=== PATIENT | female | born 1935 | race Caucasian/White ===

== ENCOUNTER → 2016-09-21 | Outpatient (CLI) | payer BC ==
[2016-09-21 13:14] LABS: BASO % 0.8 %; BASO ABS # 0.06 K/uL (0-0.2); COMPLETE YES; EOS % 10.3 %; HEMATOCRIT 36.6 % (37-47); IG% 0.1 %; LYMPH % 26.1 %; LYMPH ABS # 1.92 K/uL (1.2-3.4); MEAN CELL VOLUME 92.9 fL (80-100); MEAN CORPUSCULAR HEMOGLOBIN 30.7 pg (25-34); MEAN CORPUSCULAR HGB CONC 33.1 g/dl (32-36); MEAN PLATELET VOLUME 10.6 fL (7.4-10.4); MONO % 11.9 %; NEUT % 50.8 %; PLATELET COUNT 240 K/uL (130-400); RED BLOOD COUNT 3.94 M/uL (4.2-5.4); WHITE BLOOD COUNT 7.37 K/uL (4.8-10.8)
[2016-09-21 13:35] LABS: ALT/SGPT 20 U/L (12-78); BLOOD UREA NITROGEN 34 mg/dl (7-18); BUN/CREATININE RATIO 30.6 (10-20); CALCIUM 8.9 mg/dl (8.5-10.1); CARBON DIOXIDE 26 mmol/L (21-32); CHLORIDE 106 mmol/L (98-107); CHOLESTEROL 166 mg/dl (0-200); GLUCOSE 93 mg/dl (70-99); POTASSIUM 4.5 mmol/L (3.5-5.1); SODIUM 142 mmol/L (136-145); TRIGLYCERIDES 136 mg/dl (0-150); URIC ACID 6.4 mg/dl (2.6-7.2); VERY LOW DENSITY LIPOPROT CALC 27 mg/dl
[2016-09-21 13:46] LABS: ALB/GLOB RATIO 0.9 (0.9-2); ALKALINE PHOSPHATASE 52 U/L (45-117); AST/SGOT 17 U/L (15-37); CHOLESTEROL/HDL RATIO 3.8; HDL CHOLESTEROL 44 mg/dl; LDL CHOLESTEROL CALCULATED 95 mg/dl
== END | disposition home or self-care (01) ==
LOC: C.LABMFLN 08:21
PROVIDERS: ATTEND Family Medicine
DX: I10 Essential (primary) hypertension (principal); E78.5 Hyperlipidemia, unspecified; M10.9 Gout, unspecified

== ENCOUNTER → 2017-02-16 | Outpatient (CLI) | payer BC ==
--- NOTE | 2017-02-17 07:55 | MAMMOGRAPHY REPORT ---
BILATERAL DIGITAL SCREENING MAMMOGRAM TOMOSYNTHESIS WITH CAD: 02/16/2017 CLINICAL HISTORY: Routine screening. Patient has no complaints. TECHNIQUE: Breast tomosynthesis in addition to standard 2D mammography was performed. Current study was also evaluated with a Computer Aided Detection (CAD) system. COMPARISON: Comparison is made to exams dated: 02/10/2016 mammogram, 02/05/2015 mammogram - [facility], 02/02/2014 mammogram, 01/10/2013 mammogram, and 01/08/2012 mammogram - [facility]. BREAST COMPOSITION: The tissue of both breasts is almost entirely fatty. FINDINGS: There is a stable grouping of punctate microcalcifications in the lateral right breast. Mo derate vascular calcifications. No suspicious mass, architectural distortion or cluster of suspiciou s microcalcifications is seen. IMPRESSION: ACR BI-RADS CATEGORY 1: NEGATIVE There is no mammographic evidence of malignancy. A 1 year screening mammogram is recommended. The pa tient will receive written notification of the results. Approximately 10% of breast cancers are not detected with mammography. A negative mammographic report should not delay biopsy if a clinically suggestive mass is present. Yashira Leach M.D. ay/:02/16/2017 16:45:27 New Client Banking Services Clerk: Deidra GONCALVES(Quang)(Marleny), [facility] letter sent: Normal 1/2 BI-RADS Code: ACR BI-RADS Category 1: Negative
== END | disposition home or self-care (01) ==
LOC: C.MAMM 12:51
PROVIDERS: ATTEND Family Medicine
DX: Z12.31 Encounter for screening mammogram for malignant neoplasm of breast (principal)

== ENCOUNTER → 2017-10-22 | Outpatient (CLI) | payer BC ==
[2017-10-22 13:51] LABS: ALBUMIN 3.3 gm/dl (3.4-5.0); ALT/SGPT 20 U/L (12-78); AST/SGOT 20 U/L (15-37); BLOOD UREA NITROGEN 21 mg/dl (7-18); CALCIUM 8.6 mg/dl (8.5-10.1); CARBON DIOXIDE 28 mmol/L (21-32); CHOLESTEROL 174 mg/dl (0-200); CREATININE 1.02 mg/dl (0.60-1.20); GLUCOSE 101 mg/dl (70-99); POTASSIUM 4.2 mmol/L (3.5-5.1); SODIUM 140 mmol/L (136-145)
[2017-10-22 13:53] LABS: BASO % 0.4 %; BASO ABS # 0.03 K/uL (0-0.2); EOS % 10.1 %; EOS ABS # 0.82 K/uL (0-0.5); HEMATOCRIT 38.8 % (37-47); HEMOGLOBIN 12.6 g/dL (12.0-16.0); IG# 0.02 K/uL (0.00-0.02); LYMPH % 22.8 %; LYMPH ABS # 1.84 K/uL (1.2-3.4); MEAN CELL VOLUME 95.1 fL (80-100); MEAN CORPUSCULAR HEMOGLOBIN 30.9 pg (25-34); MEAN CORPUSCULAR HGB CONC 32.5 g/dl (32-36); MEAN PLATELET VOLUME 11.5 fL (7.4-10.4); MONO % 11.8 %; MONO ABS # 0.95 K/uL (0.11-0.59); NEUT % 54.7 %; NEUT ABS # 4.42 K/uL (1.4-6.5); PLATELET COUNT 242 K/uL (130-400); RED CELL DISTRIBUTION WIDTH CV 13.6 % (11.5-14.5); RED CELL DISTRIBUTION WIDTH SD 46.8 fL (36.4-46.3); WHITE BLOOD COUNT 8.08 K/uL (4.8-10.8)
[2017-10-22 14:01] LABS: ALKALINE PHOSPHATASE 60 U/L (45-117); LDL CHOLESTEROL CALCULATED 95 mg/dl; TOTAL PROTEIN 7.6 gm/dl (6.4-8.2)
== END | disposition home or self-care (01) ==
LOC: C.LABMFLN 09:03
PROVIDERS: ATTEND Family Medicine
DX: M10.9 Gout, unspecified (principal); I10 Essential (primary) hypertension; E78.5 Hyperlipidemia, unspecified; M81.0 Age-related osteoporosis without current pathological fracture

== ENCOUNTER 2024-01-19 10:29 | Inpatient (IN) ==
[2024-01-19 11:13] LABS: Basophils # (auto) 0.06 K/uL (0.00-0.20); Basophils % (auto) 0.7 %; Eosinophils # (auto) 0.84 K/uL (0.00-0.50); Eosinophils % (auto) 9.2 %; Hematocrit (blood only) 35.6 % (37.0-47.0); Hemoglobin 11.7 g/dl (12.0-16.0); Immature Granulocytes # (auto) 0.02 K/uL (0.01-0.20); Immature Granulocytes % (auto) 0.2 %; Lymphocytes # (auto) 1.44 K/uL (1.20-3.40); Lymphocytes % (auto) 15.7 %; Mean Corpuscular Hgb Conc 32.9 g/dL (32.0-36.0); Mean Corpuscular Volume 94.4 fL (80.0-100.0); Mean Platelet Volume 10.9 fL (9.4-12.4); Monocytes # (auto) 1.14 K/uL (0.11-0.59); Monocytes % (auto) 12.4 %; Neutrophils # (auto) 5.66 K/uL (1.40-6.50); Neutrophils % (auto) 61.8 %; Platelet Count 276 K/uL (130-400); RDW Coefficient of Variation 14.4 % (11.5-14.5); RDW Standard Deviation 49.8 fL (36.4-46.3); Red Blood Count 3.77 M/uL (4.20-5.40); White Blood Count 9.16 K/ul (4.8-10.8)
[2024-01-19 11:31] LABS: Albumin Globulin Ratio 1.3 (0.9-2); Albumin Level 4.2 gm/dl (3.4-5.0); BUN Creatinine Ratio 18.5 (10-20); Bilirubin,Total 0.4 mg/dl (0.2-1.0); Calcium 9.3 mg/dl (8.6-10.3); Creatinine Clr Calc Pharmacy 8.8 ml/min; Est GFR (African American) 12.2 ml/min; Est GFR (Non-African American) 10.5 ml/min; Globulin 3.3 gm/dl (2.5-4.0); Potassium 4.9 mmol/L (3.5-5.1); Total Protein 7.5 gm/dl (6.0-8.3)
[2024-01-19 11:34] LABS: Troponin I High Sensitivity 16.5 pg/ml (0-14)
[2024-01-19 11:36] LABS: INR 1.2 (0.9-1.1); Partial Thromboplastin Ratio 1.2; Partial Thromboplastin Time 32 Seconds (21-31); Prothrombin Time 12.9 Seconds (9.0-12.0)
--- NOTE | 2024-01-19 11:36 | XRay Report ---
XR chest 1V portable HISTORY: 88 years-old Female Chest pain, nonspecific COMPARISON: Chest radiograph 01/12/2024, chest CT 10/20/2023. TECHNIQUE: AP view of the chest FINDINGS: Cardiomediastinal and hilar silhouettes are unchanged. Pulmonary vascular congestion. No pleural effu janina. Mild bibasilar opacities. Pulmonary nodules redemonstrated. Ill-defined bilateral airspace opac ities redemonstrated. Bones appear grossly intact. IMPRESSION: 1. Cardiomegaly with vascular congestion. 2. Mild bibasilar densities, likely atelectatic. 3. Pulmonary nodules better seen on the prior chest CT. ACT 112: Negative or not required by law. The above report was generated using voice recognition software. It may contain grammatical, syntax o r spelling errors. Electronically signed by: Tyson Naranjo M.D. 01/19/2024 11:35 AM
[2024-01-19] MEDS: SODIUM CHLORIDE 0.9% 1,000 ML IV SCH (12:07)
--- NOTE | 2024-01-19 12:24 | History & Physical Report ---
Date of Service January 19, 2024 Assessment & Plan (1) Acute kidney injury superimposed on chronic kidney disease: Plan: Suspect this may be secondary to medications; Lasix increased from 40mg daily to BID 1 week prior to arrival BUN 68, creatinine 3.68 (baseline 1.95), EGFR 10.5 Avoid nephrotoxic agents where possible CT abdomen/pelvic without contrast ordered, pending Dose reduce Eliquis to 2.5 mg twice daily given Cr level Hold Lasix for now Gentle IVF resuscitation Trend BMP (2) Substernal chest pain: Plan: Dull, substernal chest pain at rest that lasted 3 hours the morning of 01/18; patient sent in by [facility] cardiology Troponin 16.5-->13 on arrival Echocardiogram ordered, pending Will defer nitro and beta-blockers at this time given marked bradycardia ASA 243 mg given to complete 324 mg loading dose EKG showed marked sinus bradycardia with first-degree block at 43 bpm; some morphology change when compared to 01/11/2024 re: RBBB Continuous telemetry monitoring (3) (HFpEF) heart failure with preserved ejection fraction: Plan: Patient is euvolemic on arrival; no JVD or edema in the legs 7 pound weight loss over the past week after increasing Lasix CXR with vascular congestion; otherwise unremarkable Most recent BNP at 433 on 01/12/2024 Last echocardiogram on 03/11/2023 revealed LVEF at > 70% Heart healthy, low-sodium diet Daily weights Strict I&O monitoring Hold Lasix (as above) (4) Paroxysmal atrial fibrillation: Plan: Rate controlled on arrival Hold metoprolol in the setting of bradycardia Dose reduced Eliquis (5) Junctional bradycardia: Plan: Bradycardia dropping to 43 bpm on arrival Occurs when taking amiodarone and metoprolol Hold metoprolol, amiodarone, and AV liberty blocking agents for now (6) Neuroendocrine carcinoma of lung: Plan: Follows with CCP/pulmonology; no respiratory complaints at this time (7) Benign essential hypertension: Plan: Continue amlodipine and Imdur (8) Esophageal reflux: (9) Anemia of chronic disease: (10) Hyperlipidemia: (11) Gout: Plan Disposition: Admit to [facility] telemetry Full code Heart healthy, low-sodium diet DVT PPx: Eliquis 2.5 mg p.o. BID History of Present Illness Chief Complaint: Cardiac assessment, CECELIA Primary Care Provider: Poornima Little DO Rascon is a pleasant 88-year-old female PMH of paroxysmal A-fib (on Eliquis), CHF, stage IIIb CKD, neuroendocrine carcinoma of lung, gout, HTN, HLD, reflux, and CAD. She presented at [facility] cardiology for mid-sternal chest pain that began the morning of 01/18. Patient reports her pain is located substernally and began around 8:30 AM this morning while driving in the car to her cardiology appointment. Patient had an EKG done in the cardiology office that showed sinus bradycardia at 46 bpm; patient does not believe she took metoprolol or amiodarone this morning. She notes she has had this substernal chest pain in the past before albeit with exertion, but never at rest. She describes it as a "dull, tooth ache" pain that has been constant over the past 3 hours. Most of the time, this pain is alleviated with rest, but this time it has been ongoing/lingering. She rates the pain 3/10 at present; 5/10 at worst. Patient did not take any medications for the pain, and she reports has not been "strong enough" to merit medications. No radiation to the back, shoulders, or down the arms arms. Patient denies any prior cardiac events; no PMH of MA or CVA. Patient takes aspirin daily for primary prevention. She took her regular morning medications this morning; her only recent change in medication was that she was increased from Lasix 40 mg daily to twice daily on 01/11 for fluid retention. Prior to that she was having SOB both at rest and with exertion, but she reports no SOB at this time. She is still producing urine and going to the bathroom frequently. No history of kidney stones. No history of urinary retention. She is lost 7 pounds over the past week. Her leg swelling has subsided. She reports that she watches her salt intake, and has no recent changes in diet. No recent injuries to the chest wall. Patient ambulates with a cane as needed; no recent falls. Patient denies smoking, tobacco use, or recent alcohol use. Patient is mildly bradycardic at 53 bpm at time of a dmission; SpO2 92% on RA; vitals otherwise stable. ED course: NSS at 125 mL/hr ROS: Patient endorses substernal chest pain at rest, weight loss over the past week, intermittent night-sweats, BYRNE, and blurry vision yesterday (which resolved). Patient denies fever, chills, dizziness, lightheadedness, loss of vision, changes in taste/hearing/smell, SOB at rest or with exertion, cough, pleuritic CP, chest palpitations, abdominal pain, N/V/D, changes in urinary/bowel habits, urinary retention, blood in urine or stool, or numbness/tingling/swelling in the arms or legs. Allergies Allergy/AdvReac Type Severity Reaction Status Date / Time No Known Drug Allergies Allergy Verified 01/19/24 09:18 Home Medications Medication Instructions Recorded Confirmed Type calcium carbonate 600 mg-vitamin 1 tab PO BID #180 tabs 01/24/19 01/19/24 Rx D3 10 mcg (400 unit) tablet cetirizine 10 mg tablet 10 mg PO DAILY PRN allergy 02/28/20 01/19/24 Rx symptoms #90 tabs aspirin 81 mg tablet,delayed 81 mg PO QAM 04/07/23 01/19/24 History release (Adult Low Dose Aspirin) cholecalciferol (vitamin D3) 25 1,000 units PO QAM 04/07/23 01/19/24 History mcg (1,000 unit) tablet multivitamin 1 tab PO QAM 04/07/23 01/19/24 History rosuvastatin 20 mg tablet 20 mg PO QAM #90 tabs 04/12/23 01/19/24 Rx ferrous sulfate 325 mg (65 mg 325 mg PO Q OTHER DAY 04/30/23 01/19/24 History iron) tablet (Feosol) magnesium oxide 400 mg (241.3 mg 400 mg PO UD 06/01/23 01/19/24 History magnesium) tablet chlorpheniramine maleate 4 mg 4 mg PO HS 30 days #30 tabs 07/02/23 01/19/24 Rx tablet (Allergy Relief (chlorpheniramine)) fluticasone propionate 50 1 spray intranasal BID #18.2 mL 07/02/23 01/19/24 Rx mcg/actuation nasal spray,suspension (Flonase Allergy Relief) potassium chloride 20 mEq 20 meq PO DAILY #90 tabs 07/30/23 01/19/24 Rx tablet,extended release isosorbide mononitrate 30 mg 30 mg PO DAILY #90 tabs 09/09/23 01/19/24 Rx tablet,extended release 24 hr amlodipine 10 mg tablet 10 mg PO QAM #90 tabs 10/06/23 01/19/24 Rx apixaban 5 mg tablet 5 mg PO BID #60 tabs 12/28/23 01/19/24 Rx pantoprazole 40 mg tablet,delayed 40 mg PO BID #180 tabs 12/31/23 01/19/24 Rx release allopurinol 100 mg tablet 100 mg PO QAM #90 tabs 01/10/24 01/19/24 Rx furosemide 40 mg tablet 40 mg PO BID #60 tabs 01/12/24 01/19/24 Rx albuterol sulfate 0.63 mg/3 mL 2.5 mg inhalation .Q4-6H PRN Other 01/19/24 0 01/19/24 History solution for nebulization amiodarone 200 mg tablet 200 mg PO DAILY 01/19/24 01/19/24 History metoprolol tartrate 50 mg tablet 50 mg PO BID 01/19/24 01/19/24 History scopolamine base 1 mg over 3 days 1 patch transdermal UD PRN nausea 01/19/24 01/19/24 History transdermal patch (Transderm-Scop) and vomiting tramadol 37.5 mg-acetaminophen 325 1 tab PO UD PRN pain 01/19/24 01/19/24 History mg tablet Past Med/Surg History Problem List (Updated 01/19/24 @ 13:05 by Jack Mckeon PA-C) Anemia of chronic disease (HFpEF) heart failure with preserved ejection fraction Substernal chest pain Acute kidney injury superimposed on chronic kidney disease 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 Moderate right and mild left external carotid artery stenosis. Left lumbar radiculopathy Anemia CKD (chronic kidney disease), stage III H/O oophorectomy S/P inguinal hernia repair S/P tubal ligation S/P hysterectomy S/P carpal tunnel release RIGHT S/P colonoscopy 04/09/2016 Vitamin D deficiency (Chronic) Postmenopausal osteoporosis (Chronic) Obesity (Chronic) Hyperlipidemia (Chronic) Gout (Chronic) Generalized osteoarthritis of multiple sites (Chronic) Esophageal reflux (Chronic) Benign essential hypertension (Chronic) Medical History (Updated 01/19/24 @ 13:05 by Jack Mckeon PA-C) Atrial fibrillation currently on eliquis; will be seeing [place] the first time [place] 20[place] [facility] [place]ausea and vomiting after administration of anesthetic agent History of asthma no inh. Lung nodules found on scan History of COVID-2020, tested at clinic, not hosp; nausea, headache, loss of taste and hearing>still has some loss of taste, no other symptoms Surgical History Hx of tonsillectomy H/O excision of mass (04/27/22) FINAL DIAGNOSIS In office procedure Dr. Melvin Skin, left ankle, punch biopsy: - Changes suggestive of stasis dermatitis - Negative for malignancy H/O rotator cuff surgery left History of cataract surgery BILATERAL Family History Father Hypertension Mother Diabetes Hypertension Uterine cancer Son Lung cancer Brother Coronary heart disease Hypertension Myocardial infarction Sister Diabetes Breast cancer Aunt Breast cancer Other Stroke Denies family history of Ovarian cancer Prostate cancer Colorectal cancer Social History Smoking Status: Never smoker Second Hand Exposure: Yes (hx until 45 years ago); Do You Dip or Chew Tobacco: No; Hx Alcohol Use: No Hx Substance Use: No Preferred Language: Citizen Of [place] Communication Ability: Effective Visual Impairment: Limited Hearing Ability: Normal Insurance Agent Required: No Beliefs That Will Affect Care: None marital status: / Current Living Situation: Alone Current Living Situation Comment: Son lives with them 12/2021 current occupational status: retired How many Children do You have: 4 other: One Feels Safe at Home: Yes Childhood Exposure to Second-Hand Smoke: Yes (father/brother) Diet: regular Diet Comment: Regualar diet caffeine: Yes (coffee in am) during the past year weight has: remained stable Dental Care, Regularly: Yes Physical Activity Frequency: Does not Exercise Seatbelt Use: always Sunscreen Use: No Do you think of yourself as: straight/heterosexual Gender Identity: Female Assistive Devices: Denture - Upper and Glasses Review of Systems Review of Systems: See HPI above Physical Exam Physical Exam: General: no acute distress; pleasant affect; non-toxic appearing; well- nourished; cooperative; SpO2 92% on RA HEENT: normocephalic, atraumatic; no scleral icterus; PERRLA; vision and hearing intact Neck: supple; negative JVP; no lymphadenopathy; trachea midline Skin: warm, dry without signs of tenting; no cyanosis; no rashes, bruising, lesions, or erythema noted CV: chest wall NTP; chest pain is nonreproducible upon substernal palpation; RR, bradycardic around 50 bpm; S1/S2 normal; 4/6 systolic ejection murmur auscultated at the second ICS MCL; bounding pulses intact and symmetric at radial, DP, and PT Lungs: no acute respiratory distress; symmetrical chest wall expansion; clear breath sounds across all lung schwartz w/o adventitious sounds; no wheezing ABD: Soft, NTP; BS present; no rebound/guarding; no distention MSK: no tics or fasciculations; no edema noted in the LEs b/l, nonerythematous Neuro: A&Ox3; normal mood and affect; fluent speech; no focal deficits; sensation grossly intact in the LEs b/l Results & Data Results & Data Vital Signs (Past 12 Hours) Vital Signs Temp Pulse Resp BP Pulse Ox O2 Del Method 01/19/24 12:19 51 L 01/19/24 11:42 42 L 18 92 Room Air 01/19/24 11:30 115/49 L 01/19/24 11:00 45 L 16 129/62 95 Room Air 01/19/24 10:31 36.7 C 43 L 18 115/41 L 95 Room Air Laboratory Results Abnormal lab results 01/19/24 Range/Units 10:58 RBC 3.77 L (4.20-5.40) M/uL Hgb 11.7 L (12.0-16.0) g/dl Hct 35.6 L (37.0-47.0) % RDW Std Deviation 49.8 H (36.4-46.3) fL [place] # (Auto) 1.14 H (0.11-0.59) K/uL Eos # (Auto) 0.84 H (0.00-0.50) K/uL PT 12.9 H (9.0-12.0) Seconds INR 1.2 H (0.9-1.1) APTT 32 H (21-31) Seconds Chloride 96 L (98-107) mmol/L BUN 68 H (6-23) mg/dl Creatinine 3.68 H (0.6-1.2) mg/dl Glucose 113 H (70-99(Fasting)) mg/dl Troponin I High Sens 16.5 H (0-14) pg/ml Diagnostic Findings Chest X-Ray 01/19/24 10:49 XR chest 1V portable HISTORY: 88 years-old Female Chest pain, nonspecific COMPARISON: Chest radiograph 01/12/2024, chest CT 10/20/2023. TECHNIQUE: AP view of the chest FINDINGS: Cardiomediastinal and hilar silhouettes are unchanged. Pulmonary vascular congestion. No pleural effusion. Mild bibasilar opacities. Pulmonary nodules redemonstrated. Ill-defined bilateral airspace opacities redemonstrated. Bones appear grossly intact. IMPRESSION: 1. Cardiomegaly with vascular congestion. 2. Mild bibasilar densities, likely atelectatic. 3. Pulmonary nodules better seen on the prior chest CT. ACT 112: Negative or not required by law. The above report was generated using voice recognition software. It may contain grammatical, syntax or spelling errors. Electronically signed by: Tyson Naranjo M.D. 01/19/2024 11:35 AM ECG Additional Comments: ECG revealed marked sinus bradycardia with first-degree AV block at 43 bpm; QTc 483 Code Status & VTE Plan Code Status Full code (discussed with patient and patient's son at bedside; while she is okay to remain a full code and receive CPR/defibrillation/intubation if needed, she would like it to be known that she would not like any long-term/prolonged mechanical ventilation if it came to that) VTE Prophylaxis Plan VTE Prophylaxis will be ordered: Yes Supervising Physician Co-Signing Physician Notes Patient seen and examined, chart reviewed, case discussed with Jack Mckeon PA-C and I agree with the assessment and plan as above except as otherwise noted Labs and images reviewed Tarah is seen at the bedside. At around 89 AM she did have the development of a "very mild not pain but 2/10 pressure ". She has had this pain intermittently when she has been volume overloaded but never when she is euvolemic. She did have an episode of sweating this morning but this was not at the same time as her chest pain. Does not normally have sweats. At time of ER assessment EKG shows bundle branch block without acute change, high sensitive troponin initially elevated at 16.5. Has a history of bradycardia with AV block and chronotropic response. She is not hypotensive on assessment. Chest pain has been persistent for around 5 hours. Has a history of GERD but reports this feels different from her GERD. No epigastric tenderness. No reproducibility. Given substernal chest pain with sweating different from her prior pain was given full dose aspirin while awaiting second troponin. Second troponin downtrending. Was reviewed with cardiology. Echo is pending. Low risk for ACS giving ongoing pain with downtrending troponin. CT of the abdomen is with left adrenal adenoma, no evidence of acute cholecystitis/diverticulitis. Pulmonary nodules noted consistent with history of malignancy. Agree with assessment and management above. At the bedside she is nondistressed, lungs are clear, systolic murmur is present. Echo is pending.Bibasilar densities on chest x-ray, no pleural effusion seen. Pulmonary vascular congestion is present without overt edema. Previously noted small pleural effusions are improved compared to 01/12/2024 chest x-ray. PG Care Time/CCT Total # of Minutes Spent Total Time Spent with Patient: Total time spent is greater than 50% in coordination of care (as documented) at patient's floor/unit and/or counseling patient: [place] [address] INT INP/OBS CARE 3/75MIN Patient Type Established Medical Decision Making High Complexity Diagnoses Acute kidney injury superimposed on chronic kidney disease N17.9; N18.9 Substernal chest pain R07.2 (HFpEF) heart failure with preserved ejection fraction I50.30 Paroxysmal atrial fibrillation I48.0 Junctional bradycardia R00.1 Neuroendocrine carcinoma of lung C7A.8 Benign essential hypertension I10 Esophageal reflux K21.9 Anemia of chronic disease D63.8 Mixed hyperlipidemia E78.2 Hyperlipidemia type: mixed hyperlipidemia Gout, unspecified cause, unspecified chronicity, unspecified site M10.9 Chronicity: unspecified Gout etiology: unspecified cause Gout site: unspecified site (10) Hyperlipidemia Hyperlipidemia type: mixed hyperlipidemia Qualified Code(s): E78.2 - Mixed hyperlipidemia (11) Gout Chronicity: unspecified Gout etiology: unspecified cause Gout site: unspecified site Qualified Code(s): M10.9 - Gout, unspecified
--- NOTE | 2024-01-19 13:30 | CT Scan Report ---
CT abd pelvis wo con CLINICAL HISTORY: ARF, lung CA TECHNIQUE: Helical axial images of the abdomen and pelvis were obtained. Automated dose lowering tech niques and/or adjustment according to patient size were utilized for this exam. This exam was perfor med without intravenous contrast. CT DOSE: 1209.51 mGy.cm COMPARISON: Comparison is made to head CT 07/21/2023 FINDINGS: Lower chest: Numerous pulmonary nodules are seen. Previously noted pleural effusions have resolved. Liver: Unremarkable. No focal lesions are seen. Gallbladder and biliary tree: Cholelithiasis is seen without evidence of cholecystitis. No intra- or extrahepatic biliary ductal dilation. Pancreas: Unremarkable, no focal lesions. Spleen: Unremarkable. Adrenals: A millimeter left adrenal nodule is seen, likely representing a lipid rich adenoma. Kidneys and ureters: Renal cysts are seen. Bladder: Unremarkable. Reproductive organs: Patient is status post hysterectomy. Bowel: Diverticulosis is seen without evidence of diverticulitis. Lymph nodes Retroperitoneal: Unremarkable. Pelvic: Unremarkable. Mesenteric: Unremarkable. Peritoneum: Normal. Vessels: Atherosclerotic calcifications are seen. Abdominal wall: A fat-containing umbilical hernia is seen. Infrarenal fat-containing hernia is seen. Bones: Degenerative changes in the visualized spine. IMPRESSION: 1. No acute abnormalities to explain acute renal failure. 2. Partial visualization of numerous pulmonary nodules in this patient with history of lung cancer. 3. Left adrenal adenoma. 4. Cholelithiasis without cholecystitis. 5. Diverticulosis without diverticulitis. ACT 112: Negative or not required by law. Electronically signed by: Matthew Rowland M.D. 01/19/2024 1:29 PM
[2024-01-19] MEDS: ASPIRIN 81 MG CHEW PO STA (13:44)
[2024-01-19] MEDS: LACTATED RINGER'S 1,000 ML IV SCH (14:08)
[2024-01-19 14:19] LABS: Magnesium 3.2 mg/dl (1.7-2.4)
[2024-01-19 14:26] LABS: Troponin I High Sensitivity 13.7 pg/ml (0-14)
--- NOTE | 2024-01-19 15:09 | Emergency Department Note ---
ED Provider Note CHIEF COMPLAINT: [] HISTORY OF PRESENT ILLNESS: This [] patient presents to the emergency department [] REVIEW OF SYSTEMS: A review of systems was performed with positives and pertinent negatives listed in the history of present illness. 10 systems were reviewed and are otherwise negative. ALLERGIES: see below MEDICATIONS: see below PMH: see below SOCIAL HISTORY: see below DDx: [] PHYSICAL EXAM: Vital signs reviewed. General: Well-appearing, in no significant distress. HEENT: No scleral icterus, PERRLA, neck supple. Atraumatic. Cardiovascular: Regular rate and rhythm, no extra sounds. Pulmonary: Clear to auscultation bilaterally, normal work of breathing. Abdomen: Soft, nontender, nondistended, positive bowel sounds. Musculoskeletal: Atraumatic, no peripheral edema. Neurologic: Patient awake alert and oriented x 3, speech is clear Skin: Warm, dry, no rash EMERGENCY DEPARTMENT COURSE/MDM: [] MONITORING: An order for cardiac monitoring was placed and the patient is noted to be in a [] at [] beats per minute. 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 Moderate right and mild left external carotid artery stenosis. Left lumbar radiculopathy Anemia CKD (chronic kidney disease), stage III H/O oophorectomy S/P inguinal hernia repair S/P tubal ligation S/P hysterectomy S/P carpal tunnel release RIGHT S/P colonoscopy 04/09/2016 Vitamin D deficiency (Chronic) Postmenopausal osteoporosis (Chronic) Obesity (Chronic) Hyperlipidemia (Chronic) Gout (Chronic) Generalized osteoarthritis of multiple sites (Chronic) Esophageal reflux (Chronic) Benign essential hypertension (Chronic) Medical History (Updated 01/19/24 @ 13:05 by Jack Mckeon PA-C) Atrial fibrillation currently on eliquis; will be seeing cardio for the first time in april 2023[place]ols[place] [facility] [place]ausea and vomiting after administration of anesthetic agent History of asthma no inh. Lung nodules found on scan History of COVID-19 2020, tested at clinic, not hosp; nausea, headache, loss of taste and hearing>still has some loss of taste, no other symptoms Surgical History Hx of tonsillectomy H/O excision of mass (04/27/22) FINAL DIAGNOSIS In office procedure Dr. Melvin Skin, left ankle, punch biopsy: - Changes suggestive of stasis dermatitis - Negative for malignancy H/O rotator cuff surgery left History of cataract surgery BILATERAL Family History Father Hypertension Mother Diabetes Hypertension Uterine cancer Son Lung cancer Brother Coronary heart disease Hypertension Myocardial infarction Sister Diabetes Breast cancer Aunt Breast cancer Other Stroke Denies family history of Ovarian cancer Prostate cancer Colorectal cancer Social History Smoking Status: Never smoker Second Hand Exposure: Yes (hx until 45 years ago); Do You Dip or Chew Tobacco: No; Hx Alcohol Use: No Hx Substance Use: No Preferred Language: Malay Communication Ability: Effective Visual Impairment: Limited Hearing Ability: Normal Room Service Waiter Required: No Beliefs That Will Affect Care: None marital status: / Current Living Situation: Alone Current Living Situation Comment: Son lives with them 12/2021 current occupational status: retired How many Children do You have: 4 other: One Feels Safe at Home: Yes Childhood Exposure to Second-Hand Smoke: Yes (father/brother) Diet: regular Diet Comment: Regualar diet caffeine: Yes (coffee in am) during the past year weight has: remained stable Dental Care, Regularly: Yes Physical Activity Frequency: Does not Exercise Seatbelt Use: always Sunscreen Use: No Do you think of yourself as: straight/heterosexual Gender Identity: Female Assistive Devices: Denture - Upper and Glasses Allergies Allergies Allergy/AdvReac Type Severity Reaction Status Date / Time No Known Drug Allergies Allergy Verified 01/19/24 09:18 Home Meds Home Medications Medication Instructions Recorded Confirmed aspirin 81 mg tablet,delayed 81 mg PO QAM 04/07/23 01/19/24 release (Adult Low Dose Aspirin) cholecalciferol (vitamin D3) 25 1,000 units PO QAM 04/07/23 01/19/24 mcg (1,000 unit) tablet multivitamin 1 tab PO QAM 04/07/23 01/19/24 ferrous sulfate 325 mg (65 mg 325 mg PO Q OTHER DAY 04/30/23 01/19/24 iron) tablet (Feosol) magnesium oxide 400 mg (241.3 mg 400 mg PO UD 06/01/23 01/19/24 magnesium) tablet albuterol sulfate 0.63 mg/3 mL 2.5 mg inhalation .Q4-6H PRN Other 01/19/24 01/19/24 solution for nebulization amiodarone 200 mg tablet 200 mg PO DAILY 01/19/24 01/19/24 metoprolol tartrate 50 mg tablet 50 mg PO BID 01/19/24 01/19/24 scopolamine base 1 mg over 3 days 1 patch transdermal UD PRN nausea 01/19/24 01/19/24 transdermal patch (Transderm-Scop) and vomiting tramadol 37.5 mg-acetaminophen 325 1 tab PO UD PRN pain 01/19/24 01/19/24 mg tablet Previous Rx's Medication Instructions Recorded calcium carbonate 600 mg-vitamin 1 tab PO BID #180 tabs 01/24/19 D3 10 mcg (400 unit) tablet cetirizine 10 mg tablet 10 mg PO DAILY PRN allergy 02/28/20 symptoms #90 tabs rosuvastatin 20 mg tablet 20 mg PO QAM #90 tabs 04/12/23 chlorpheniramine maleate 4 mg 4 mg PO HS 30 days #30 tabs 07/02/23 tablet (Allergy Relief (chlorpheniramine)) fluticasone propionate 50 1 spray intranasal BID #18.2 mL 07/02/23 mcg/actuation nasal spray,suspension (Flonase Allergy Relief) potassium chloride 20 mEq 20 meq PO DAILY #90 tabs 07/30/23 tablet,extended release isosorbide mononitrate 30 mg 30 mg PO DAILY #90 tabs 09/09/23 tablet,extended release 24 hr amlodipine 10 mg tablet 10 mg PO QAM #90 tabs 10/06/23 apixaban 5 mg tablet 5 mg PO BID #60 tabs 12/28/23 pantoprazole 40 mg tablet,delayed 40 mg PO BID #180 tabs 12/31/23 release allopurinol 100 mg tablet 100 mg PO QAM #90 tabs 01/10/24 furosemide 40 mg tablet 40 mg PO BID #60 tabs 01/12/24 Results & Data (ED) Vital Signs Vital Signs - 24 hr 01/19/24 10:31 01/19/24 11:00 01/19/24 11:30 Temperature 36.7 C Temperature Source Temporal Artery Scan Pulse Rate 43 L 45 L Pulse Rate from SpO2 Sensor 42 L Respiratory Rate 18 16 Respiratory Effort / Characteristics Non-Labored Spontaneous Respiratory Depth Normal Blood Pressure 115/41 L 129/62 115/49 L Blood Pressure Mean 65 84 82 Blood Pressure Position Sitting Pulse Oximetry 95 95 Oxygen Delivery Method Room Air Room Air Sepsis Recent Fever Within 48 Hours No Sepsis New/Unexplained Change in Mental Status No Sepsis Action Taken by Nursing No Action Required 01/19/24 11:42 01/19/24 12:00 01/19/24 12:03 Temperature Temperature Source Pulse Rate 42 L 47 L Pulse Rate from SpO2 Sensor 44 L 48 L Respiratory Rate 18 19 Respiratory Effort / Characteristics Respiratory Depth Blood Pressure 128/59 L Blood Pressure Mean 99 Blood Pressure Position Pulse Oximetry 92 91 Oxygen Delivery Method Room Air Room Air Sepsis Recent Fever Within 48 Hours Sepsis New/Unexplained Change in Mental Status Sepsis Action Taken by Nursing 01/19/24 12:19 01/19/24 12:30 01/19/24 12:42 Temperature Temperature Source Pulse Rate 51 L 53 L Pulse Rate from SpO2 Sensor Respiratory Rate Respiratory Effort / Characteristics Respiratory Depth Blood Pressure 131/89 Blood Pressure Mean 98 Blood Pressure Position Pulse Oximetry Oxygen Delivery Method Sepsis Recent Fever Within 48 Hours Sepsis New/Unexplained Change in Mental Status Sepsis Action Taken by Nursing 01/19/24 13:00 01/19/24 13:06 01/19/24 13:27 Temperature Temperature Source Pulse Rate Pulse Rate from SpO2 Sensor 53 L 53 L Respiratory Rate 16 Respiratory Effort / Characteristics Respiratory Depth Blood Pressure 121/66 Blood Pressure Mean 85 Blood Pressure Position Pulse Oximetry 95 95 Oxygen Delivery Method Room Air Room Air Sepsis Recent Fever Within 48 Hours Sepsis New/Unexplained Change in Mental Status Sepsis Action Taken by Nursing 01/19/24 13:30 01/19/24 14:03 Temperature Temperature Source Pulse Rate 53 L Pulse Rate from SpO2 Sensor 53 L Respiratory Rate 13 Respiratory Effort / Characteristics Respiratory Depth Blood Pressure 143/40 H 122/57 L Blood Pressure Mean 74 78 Blood Pressure Position Pulse Oximetry 93 Oxygen Delivery Method Room Air Sepsis Recent Fever Within 48 Hours Sepsis New/Unexplained Change in Mental Status Sepsis Action Taken by Nursing Laboratory Data 01/19/24 10:58 01/19/24 10:58 Lab Results 01/19/24 01/19/24 Range/Units 10:58 13:51 WBC 9.16 (4.8-10.8) K/ul RBC 3.77 L (4.20-5.40) M/uL Hgb 11.7 L (12.0-16.0) g/dl Hct 35.6 L (37.0-47.0) % MCV 94.4 (80.0-100.0) fL MCH 31.0 (25.0-34.0) pg MCHC 32.9 (32.0-36.0) g/dL RDW Std Deviation 49.8 H (36.4-46.3) fL RDW Coeff of Silvano 14.4 (11.5-14.5) % Plt Count 276 (130-400) K/uL MPV 10.9 (9.4-12.4) fL Immature Gran % (Auto) 0.2 % Neut % (Auto) 61.8 % Lymph % (Auto) 15.7 % [place] % (Auto) 12.4 % Eos % (Auto) 9.2 % Baso % (Auto) 0.7 % Neut # (Auto) 5.66 (1.40-6.50) K/uL Lymph # (Auto) 1.44 (1.20-3.40) K/uL [place] # (Auto) 1.14 H (0.11-0.59) K/uL Eos # (Auto) 0.84 H (0.00-0.50) K/uL Baso # (Auto) 0.06 (0.00-0.20) K/uL Immature Gran # (Auto) 0.02 (0.01-0.20) K/uL PT 12.9 H (9.0-12.0) Seconds INR 1.2 H (0.9-1.1) APTT 32 H (21-31) Seconds PTT Ratio 1.2 Sodium 138 (136-145) mmol/L Potassium 4.9 (3.5-5.1) mmol/L Chloride 96 L (98-107) mmol/L Carbon Dioxide 32 (21-32) mmol/L Anion Gap 10 (3-11) BUN 68 H (6-23) mg/dl Creatinine 3.68 H (0.6-1.2) mg/dl Est Cr Clr Drug Dosing 8.8 ml/min Est GFR ( Amer) 12.2 ml/min Est GFR (Non-Af Amer) 10.5 ml/min BUN/Creatinine Ratio 18.5 (10-20) Glucose 113 H (70-99(Fasting)) mg/dl Calcium 9.3 (8.6-10.3) mg/dl Magnesium 3.2 H (1.7-2.4) mg/dl Total Bilirubin 0.4 (0.2-1.0) mg/dl AST 24 (13-39) U/L ALT 18 (7-52) U/L Alkaline Phosphatase 58 (34-104) U/L Troponin I High Sens 16.5 H 13.7 (0-14) pg/ml Total Protein 7.5 (6.0-8.3) gm/dl Albumin 4.2 (3.4-5.0) gm/dl Globulin 3.3 (2.5-4.0) gm/dl Albumin/Globulin Ratio 1.3 (0.9-2) Lipase 38 (11-82) U/L Administered Medications Lactated Ringer's (Lr) 1,000 mls @ 100 mls/hr IV .Q10H JOHN Stop: 01/19/24 23:59 Last Admin: 01/19/24 14:08 Dose: 100 mls/hr Documented By: TOMASZ Discontinued Medications Aspirin (Aspirin 81 Mg Chew) 243 mg PO NOW STA Stop: 01/19/24 13:39 Last Admin: 01/19/24 13:44 Dose: 243 mg Documented By: TOMASZ Sodium Chloride (Nss) 1,000 mls @ 125 mls/hr IV .Q8H JOHN Stop: 02/18/24 11:44 Last Infusion: 01/19/24 14:08 Dose: Infused Documented By: Admin: 01/19/24 12:07 Dose: 125 mls/hr Documented By: TOMASZ Imaging Data Radiologist's Impression: Chest X-Ray 01/19/24 10:49 XR chest 1V portable HISTORY: 88 years-old Female Chest pain, nonspecific COMPARISON: Chest radiograph 01/12/2024, chest CT 10/20/2023. TECHNIQUE: AP view of the chest FINDINGS: Cardiomediastinal and hilar silhouettes are unchanged. Pulmonary vascular congestion. No pleural effusion. Mild bibasilar opacities. Pulmonary nodules redemonstrated. Ill-defined bilateral airspace opacities redemonstrated. Bones appear grossly intact. IMPRESSION: 1. Cardiomegaly with vascular congestion. 2. Mild bibasilar densities, likely atelectatic. 3. Pulmonary nodules better seen on the prior chest CT. ACT 112: Negative or not required by law. The above report was generated using voice recognition software. It may contain grammatical, syntax or spelling errors. Electronically signed by: Tyson Naranjo M.D. 01/19/2024 11:35 AM Abdomen/Pelvis CT 01/19/24 11:39 CT abd pelvis wo con CLINICAL HISTORY: ARF, lung CA TECHNIQUE: Helical axial images of the abdomen and pelvis were obtained. Automated dose lowering techniques and/or adjustment according to patient size were utilized for this exam. This exam was performed without intravenous contrast. CT DOSE: 1209.51 mGy.cm COMPARISON: Comparison is made to head CT 07/21/2023 FINDINGS: Lower chest: Numerous pulmonary nodules are seen. Previously noted pleural effusions have resolved. Liver: Unremarkable. No focal lesions are seen. Gallbladder and biliary tree: Cholelithiasis is seen without evidence of cholecystitis. No intra- or extrahepatic biliary ductal dilation. Pancreas: Unremarkable, no focal lesions. Spleen: Unremarkable. Adrenals: A millimeter left adrenal nodule is seen, likely representing a lipid rich adenoma. Kidneys and ureters: Renal cysts are seen. Bladder: Unremarkable. Reproductive organs: Patient is status post hysterectomy. Bowel: Diverticulosis is seen without evidence of diverticulitis. Lymph nodes Retroperitoneal: Unremarkable. Pelvic: Unremarkable. Mesenteric: Unremarkable. Peritoneum: Normal. Vessels: Atherosclerotic calcifications are seen. Abdominal wall: A fat-containing umbilical hernia is seen. Infrarenal fat- containing hernia is seen. Bones: Degenerative changes in the visualized spine. IMPRESSION: 1. No acute abnormalities to explain acute renal failure. 2. Partial visualization of numerous pulmonary nodules in this patient with history of lung cancer. 3. Left adrenal adenoma. 4. Cholelithiasis without cholecystitis. 5. Diverticulosis without diverticulitis. ACT 112: Negative or not required by law. Electronically signed by: Matthew Rowland M.D. 01/19/2024 1:29 PM Discharge Plan Visit Data Chief Complaint: Cardiac Assessment Stated Complaint: HEART PROBLEMS, REF BY DOC ED Provider: Nguyen Tolbert Forms Stand Alone Forms: My [facility] Smart Device Media Prescriptions Prescriptions: No Action cetirizine 10 mg tablet 10 mg PO DAILY PRN (Reason: allergy symptoms) Qty: 90 3RF Rx Instructions: otc unable to verify 01/19/24 rosuvastatin 20 mg tablet 20 mg PO QAM Qty: 90 3RF potassium chloride 20 mEq tablet extended release 20 meq PO DAILY Qty: 90 3RF isosorbide mononitrate 30 mg tablet extended release 24 hr 30 mg PO DAILY Qty: 90 3RF amlodipine 10 mg tablet 10 mg PO QAM Qty: 90 1RF apixaban 5 mg tablet 5 mg PO BID Qty: 60 1RF pantoprazole 40 mg tablet,delayed release (DR/EC) 40 mg PO BID Qty: 180 1RF allopurinol 100 mg tablet 100 mg PO QAM Qty: 90 3RF calcium carbonate-vitamin D3 600 mg(1,500mg) -400 unit tablet 1 tab PO BID Qty: 180 3RF Rx Instructions: otc unable to verify 01/19/24 magnesium oxide 400 mg (241.3 mg magnesium) tablet 400 mg PO UD Rx Instructions: last filled in may. TID per pharmacy ferrous sulfate [Feosol] 325 mg (65 mg iron) tablet 325 mg PO Q OTHER DAY Rx Instructions: unable to verify 01/19/24 fluticasone propionate [Flonase Allergy Relief] 50 mcg/actuation spray,suspension 1 spray intranasal BID Qty: 18.2 2RF Rx Instructions: administer into each nostril chlorpheniramine maleate [Allergy Relief(chlorpheniramn)] 4 mg tablet 4 mg PO HS 30 Days Qty: 30 3RF Rx Instructions: otc unable to verify 01/19/24 furosemide 40 mg tablet 40 mg PO BID Qty: 60 2RF aspirin [Adult Low Dose Aspirin] 81 mg tablet,delayed release (DR/EC) 81 mg PO QAM Rx Instructions: otc unable to verify 01/19/24 multivitamin tablet,chewable 1 tab PO QAM Rx Instructions: otc unable to verify 01/19/24 cholecalciferol (vitamin D3) 1,000 unit (25 mcg) tablet 1,000 units PO QAM Rx Instructions: otc unable to verify 01/19/24 albuterol sulfate 0.63 mg/3 mL solution for nebulization 2.5 mg inhalation .Q4-6H PRN (Reason: Other) amiodarone 200 mg tablet 200 mg PO DAILY metoprolol tartrate 50 mg tablet 50 mg PO BID tramadol-acetaminophen 37.5-325 mg tablet 1 tab PO UD PRN (Reason: pain) Patient Comments: does not use often Rx Instructions: 1 tab q6h prn pain last filled feb 2023 per pharmacy scopolamine base [Transderm-Scop] 1 mg over 3 days patch 3 day 1 patch transdermal UD PRN (Reason: nausea and vomiting) Patient Comments: only has one patch will be using on a trip to [place] on 04/10/23 Rx Instructions: 1 every 3 days, prn last filled feb 2023 per pharmacy. Referrals Referrals: Poornima Little DO [Primary Care Provider] -
[2024-01-19] MEDS ORDERED: ACETAMINOPHEN 325 MG TAB PO PRN (15:59)
[2024-01-19] MEDS ORDERED: ONDANSETRON INJ 2 MG/ML 2 ML VIAL IV PRN (15:59)
[2024-01-19] MEDS ORDERED: ALBUTEROL 0.083% NEBU SOLN 3 ML VIAL INH PRN (16:15)
--- NOTE | 2024-01-19 17:41 | XCELERA ---
[id number] [id number]
[2024-01-19] MEDS: APIXABAN 2.5 MG TAB PO SCH (21:29)
[2024-01-19] MEDS: PANTOprazole 40 MG TAB PO SCH (21:29)
[2024-01-19] MEDS: FLUTICASONE PROPIONATE NA SPR 16 GM BTL SCH (21:30)
--- NOTE | 2024-01-19 22:24 | Electrocardiogram Report ---
Test Reason : Blood Pressure : / mmHG Vent. Rate : 043 BPM Atrial Rate : 043 BPM P-R Int : 286 ms QRS Dur : 134 ms QT Int : 572 ms P-R-T Axes : 093 088 053 degrees QTc Int : 483 ms Marked sinus bradycardia with sinus arrhythmia with 1st degree A-V block Right bundle branch block Abnormal ECG When compared with ECG of 26-APR-2023 13:04, Sinus rhythm has replaced Junctional bradycardia Confirmed by Tadeo Parra ([id number]) on 01/19/2024 10:24:18 PM Referred By: Confirmed By:Tadeo Parra
[2024-01-20 06:36] LABS: Basophils # (auto) 0.06 K/uL (0.00-0.20); Basophils % (auto) 0.9 %; Eosinophils # (auto) 0.79 K/uL (0.00-0.50); Eosinophils % (auto) 11.4 %; Hematocrit (blood only) 32.4 % (37.0-47.0); Hemoglobin 10.7 g/dl (12.0-16.0); Immature Granulocytes # (auto) 0.02 K/uL (0.01-0.20); Immature Granulocytes % (auto) 0.3 %; Lymphocytes # (auto) 1.22 K/uL (1.20-3.40); Lymphocytes % (auto) 17.6 %; Mean Corpuscular Hemoglobin 30.9 pg (25.0-34.0); Mean Corpuscular Volume 93.6 fL (80.0-100.0); Mean Platelet Volume 11.2 fL (9.4-12.4); Monocytes # (auto) 0.88 K/uL (0.11-0.59); Monocytes % (auto) 12.7 %; Neutrophils # (auto) 3.98 K/uL (1.40-6.50); Neutrophils % (auto) 57.1 %; Platelet Count 235 K/uL (130-400); RDW Coefficient of Variation 13.9 % (11.5-14.5); RDW Standard Deviation 47.8 fL (36.4-46.3); Red Blood Count 3.46 M/uL (4.20-5.40); White Blood Count 6.95 K/ul (4.8-10.8)
[2024-01-20 06:51] LABS: BUN Creatinine Ratio 19.9 (10-20); Calcium 8.6 mg/dl (8.6-10.3); Creatinine Clr Calc Pharmacy 11.7 ml/min; Est GFR (African American) 16.2 ml/min; Magnesium 2.7 mg/dl (1.7-2.4); Potassium 4.3 mmol/L (3.5-5.1)
[2024-01-20] MEDS: ISOSORBIDE MONO EXTENDED REL 30 MG TABCR PO SCH (08:01)
[2024-01-20] MEDS: amLODIPine BESYLATE 5 MG TAB PO SCH (08:01)
[2024-01-20] MEDS: ROSUVASTATIN CALCIUM 20 MG TAB PO SCH (08:01)
[2024-01-20] MEDS: ASPIRIN 81 MG ECTAB PO SCH (08:01)
[2024-01-20] MEDS: allopurinoL 100 MG TAB PO SCH (08:01)
--- NOTE | 2024-01-20 09:36 | Hospitalist Progress Note ---
Date of Service January 20, 2024 Assessment & Plan (1) Acute kidney injury superimposed on chronic kidney disease: Plan: Suspect this may be secondary to medications; Lasix increased from 40mg daily to BID 1 week prior to arrival - CT A/P on admission did not reveal any acute abnormalities to explain acute renal failure - On arrival: BUN 68, creatinine 3.68 (baseline 1.95), EGFR 10.5 - S/p 1 L IVF in ED --> Cr improved to 2.91 on 01/19 - Dose reduce Eliquis to 2.5 mg twice daily given Cr level - Avoid nephrotoxic agents where possible - Hold Lasix for now (2) Substernal chest pain: Plan: Dull, substernal chest pain at rest that lasted 3 hours the morning of 01/18; patient sent in by [place] cardiology - Troponin 16.5-->13 on arrival - EKG showed marked sinus bradycardia with first-degree block at 43 bpm; some morphology change when compared to 01/11/2024 re: RBBB - Echocardiogram 01/18 showed EF 6065, now mild aortic stenosis - Will defer nitro and beta-blockers at this time given marked bradycardia > ASA 243 mg given to complete 324 mg loading dose on admission - Continuous telemetry monitoring - Cardiology consulted, appreciate recommendations (3) (HFpEF) heart failure with preserved ejection fraction: Plan: Patient is euvolemic on arrival; no JVD or edema in the legs - 7 pound weight loss over the past week after increasing Lasix - CXR with vascular congestion; otherwise unremarkable - Most recent BNP at 433 on 01/12/2024 Daily weights Strict I&O monitoring Hold Lasix (as above) (4) Junctional bradycardia: Plan: Bradycardia dropping to 43 bpm on arrival Occurs when taking amiodarone and metoprolol Hold metoprolol, amiodarone, and AV liberty blocking agents for now (5) Paroxysmal atrial fibrillation: Plan: Rate controlled on arrival Hold metoprolol in the setting of bradycardia Dose reduced Eliquis (6) Neuroendocrine carcinoma of lung: Plan: Follows with CCP/pulmonology; no respiratory complaints at this time (7) Benign essential hypertension: Plan: Continue amlodipine and Imdur Plan Updated sons at bedside Consulted cardiology DVT PPx: Eliquis 2.5 mg p.o. BID CODE STATUS: Full code Admission and Anticipated Discharge Date Admission Date: January 19, 2024 Subjective Patient seen and evaluated in bedside chair with two sons present. She reports that the substernal chest pain subsided overnight. She described it as a dull achy pain. She notes that she would experience this chest pain intermittently with exertion when she would be volume overloaded, but this episode was different in that she was resting and euvolemic so that is why she presented to the ED. I reviewed the results of her cardiac workup with her and informed her that I consulted cardiology. Patient is understanding. She reports that she is usually asymptomatic with her bradycardia, and notes that she is mindful about getting up slowly and carefully. At this time, she denies chest pain/pressure, shortness of breath, lightheadedness, dizziness. She reports that she feels back to her baseline, but is worried that the chest pain will return given its waxing/waning presentation previously. No additional complaints or concerns at this time. Physical Exam Physical Exam: General: No acute distress, nondiaphoretic, well-developed, well-nourished. Skin: The skin was without rashes, erythema, edema, or bruising. Cardiac: Regular rhythm, bradycardic rate in the 40-50s. 4/6 systolic murmur present. Chest wall nontender. Pulm: Clear to auscultation bilaterally without wheezes, rales or rhonchi. No respiratory distress. 95% on room air. Abdominal: Soft, nontender, nondistended. Bowel sounds present. Neuro: A&O x3. No focal neurological deficits. Results & Data Results & Data Vital Signs (Past 12 Hours) Vital Signs Temp Pulse Pulse Resp BP Pulse Ox O2 Del Method 01/20/24 07:45 36.6 C 56 L 18 133/68 95 Room Air 01/20/24 05:47 49 L 01/20/24 03:10 36.7 C 55 L 16 127/52 L 95 Room Air 01/20/24 00:21 45 L 01/19/24 23:07 36.6 C 18 111/57 L 94 Room Air Laboratory Results Reviewed CBC Reviewed CMP Diagnostic Findings Echocardiogram 01/19/2024 Interpretation summary 1. Normal left ventricular size with hyperdynamic systolic function. EF 60- 65%. No regional wall motion abnormalities. Mild concentric left ventricular hypertrophy. 2. Mild aortic stenosis. 3. Mild mitral stenosis (HR 54 bpm) with mild mitral regurgitation. 4. Normal estimated right ventricular systolic pressure; RVSP 32 mmHg. 5. Compared to prior study on 08/14/2022, there is now mild aortic stenosis. Chest X-Ray 01/19/24 10:49 XR chest 1V portable HISTORY: 88 years-old Female Chest pain, nonspecific COMPARISON: Chest radiograph 01/12/2024, chest CT 10/20/2023. TECHNIQUE: AP view of the chest FINDINGS: Cardiomediastinal and hilar silhouettes are unchanged. Pulmonary vascular congestion. No pleural effusion. Mild bibasilar opacities. Pulmonary nodules redemonstrated. Ill-defined bilateral airspace opacities redemonstrated. Bones appear grossly intact. IMPRESSION: 1. Cardiomegaly with vascular congestion. 2. Mild bibasilar densities, likely atelectatic. 3. Pulmonary nodules better seen on the prior chest CT. ACT 112: Negative or not required by law. The above report was generated using voice recognition software. It may contain grammatical, syntax or spelling errors. Electronically signed by: Tyson Naranjo M.D. 01/19/2024 11:35 AM Abdomen/Pelvis CT 01/19/24 11:39 CT abd pelvis wo con CLINICAL HISTORY: ARF, lung CA TECHNIQUE: Helical axial images of the abdomen and pelvis were obtained. Automated dose lowering techniques and/or adjustment according to patient size were utilized for this exam. This exam was performed without intravenous contrast. CT DOSE: 1209.51 mGy.cm COMPARISON: Comparison is made to head CT 07/21/2023 FINDINGS: Lower chest: Numerous pulmonary nodules are seen. Previously noted pleural effusions have resolved. Liver: Unremarkable. No focal lesions are seen. Gallbladder and biliary tree: Cholelithiasis is seen without evidence of cholecystitis. No intra- or extrahepatic biliary ductal dilation. Pancreas: Unremarkable, no focal lesions. Spleen: Unremarkable. Adrenals: A millimeter left adrenal nodule is seen, likely representing a lipid rich adenoma. Kidneys and ureters: Renal cysts are seen. Bladder: Unremarkable. Reproductive organs: Patient is status post hysterectomy. Bowel: Diverticulosis is seen without evidence of diverticulitis. Lymph nodes Retroperitoneal: Unremarkable. Pelvic: Unremarkable. Mesenteric: Unremarkable. Peritoneum: Normal. Vessels: Atherosclerotic calcifications are seen. Abdominal wall: A fat-containing umbilical hernia is seen. Infrarenal fat- containing hernia is seen. Bones: Degenerative changes in the visualized spine. IMPRESSION: 1. No acute abnormalities to explain acute renal failure. 2. Partial visualization of numerous pulmonary nodules in this patient with history of lung cancer. 3. Left adrenal adenoma. 4. Cholelithiasis without cholecystitis. 5. Diverticulosis without diverticulitis. ACT 112: Negative or not required by law. Electronically signed by: Matthew Rowland M.D. 01/19/2024 1:29 PM PG Care Time/CCT Total # of Minutes Spent Total Time Spent with Patient: Total time spent is greater than 50% in coordination of care (as documented) at patient's floor/unit and/or counseling patient: Coding Level of Care Code 03202 SUB INP/OBS CARE 3/50MIN Diagnoses Acute kidney injury superimposed on chronic kidney disease N17.9; N18.9 Substernal chest pain R07.2 (HFpEF) heart failure with preserved ejection fraction I50.30 Junctional bradycardia R00.1 Paroxysmal atrial fibrillation I48.0 Neuroendocrine carcinoma of lung C7A.8 Benign essential hypertension I10
--- NOTE | 2024-01-20 13:49 | Cardiology Consultation ---
Date of Consultation January 20, 2024 Assessment & Plan (1) Substernal chest pain: (2) (HFpEF) heart failure with preserved ejection fraction: (3) Acute kidney injury superimposed on chronic kidney disease: (4) Paroxysmal atrial fibrillation: (5) Junctional bradycardia: (6) Sinus bradycardia: Plan ASSESSMENT/PLAN: 1. Chest pain: Lasted approximately 24 hours. Does not appear to be consistent with ischemic heart disease. Troponin was slightly elevated initially but in the setting of acute on chronic renal insufficiency and actually trended downward. Ischemic evaluation not necessary at this time. 2. Chronic heart failure with preserved EF: She appears euvolemic and based on labs, likely hypovolemic on presentation. Lasix had recently been increased in the outpatient setting to Lasix 40 mg twice daily. On discharge, if renal function near her baseline, can resume Lasix 40 mg once daily with close follow- up in the cardiology office. Her breathing has significantly improved with more aggressive diuretic. Probable NYHA class II currently. Low-sodium diet. Strict I's and O's while hospitalized. Daily weights. No SGLT2 inhibitor given more advanced renal insufficiency currently. 3. Paroxysmal atrial fibrillation: No need for rate control therapy as her heart rate was adequately controlled when noted on outpatient monitoring. Continue anticoagulation for stroke risk reduction. 4. Junctional bradycardia: She had developed junctional bradycardia while taking amiodarone and metoprolol. Now in sinus bradycardia after discontinuation of both amiodarone and metoprolol and April 2023 at her outpatient cardiology appointment. 5. Sinus bradycardia: She seems to be completely asymptomatic. She ambulated in the hallway and her heart rate improved from 40s up to 60s and she denied weakness, lightheadedness, dyspnea. No urgent need for pacemaker however we discussed the fact that if she becomes symptomatic in the future, pacemaker may be indicated at that time. Avoid rate controlling medications. 6. Acute on chronic CKD: Worsened renal insufficiency likely due to more aggressive diuresis in the outpatient setting, however her heart failure symptoms significantly improved with such. Agree with holding diuretic for now, and then otherwise as noted above. 7. Disposition: Patient care communicated with primary hospitalist service, Shawnee Sawant. She already has cardiology appointment scheduled on 02/01/2024. She should keep that appointment. Thank you for allowing me to participate in the care of your patient. Please call for any other questions or concerns. Sincerely, Sher KimbleD. History of Present Illness Reason for Consultation: Chest pain, bradycardia Requesting Physician: Shawnee Sawant Attending Physician: Maximiliano Floyd MD History of Present Illness Mrs. Beckett is a pleasant 88-year-old female with a history significant for atrial fibrillation, junctional bradycardia, heart failure with preserved EF, hypertension, dyslipidemia, mitral regurgitation, carotid artery stenosis and CKD. She has had the following studies/procedures: 1. Echo 08/14/2022 [facility]: Normal LV size. EF 60 to 65%. Normal wall motion. No LVH. Mild MS and mild MR. Normal RVSP. 2. Echo 03/11/2023 [facility]: Normal LV size. EF > 70%. Normal wall motion. Mild MR. 3. PFTs 04/14/2023: Mixed obstructive/restrictive physiology with borderline bronchodilator response. Lung volumes mildly reduced. Diffusion capacity severely reduced. 4. MCOT 04/27/23-05/26/23: Predominately sinus rhythm with first degree AV block and average heart rate 83 bpm (45-132 bpm). Paroxysmal atrial fibrillation was n oted with a burden of 3%. Average heart rate with atrial fibrillation was 88 bpm. Intermittent junctional rhythm in the 40s on 04/27/23. 17 patient events reported that occurred during sinus rhythm with first degree AV block, mild sinus bradycardia, an episode of junctional rhythm in the 40s, PVCs, and PACs. She was admitted on 01/19/2024 after being directed to the ER from outpatient cardiology office for chest pain. The chest discomfort was a substernal pain described as a "dull tooth ache." There was no specific trigger. She noted that it was not worse with food or exertion. There is no alleviating factors. The pain spontaneously resolved this morning. The pain was present for at least 1 full day. In the outpatient setting, she has been treated for heart failure with preserved EF. Lasix was increased to 40 mg twice daily on 01/12/2024. She reports that she lost 8 pounds with increased diuretic and when she was seen in follow-up on 01/19/2024, she reported that her breathing was much improved. Her breathing is still back to baseline. She denies dyspnea on exertion, even while walking around the nursing station. She denies orthopnea, edema, syncope, near syncope, palpitations, or bleeding such as melena, hematochezia, or hematuria. Although listed on her home medication list for this admission, metoprolol and amiodarone were discontinued in April 2023. Review of systems: As above. Review of systems otherwise negative/unremarkable. Family history: No known premature CAD. Social history: She denies tobacco, alcohol, or drug abuse. She is a (Adryan in December 2021). She had 4 children, but 1 in 2010 with lung cancer. Her son, Demar, lives with her. Her sons, Demar and Adryan, accompany her today. Allergies Allergy/AdvReac Type Severity Reaction Status Date / Time No Known Drug Allergies Allergy Verified 01/19/24 09:18 Home Medications Medication Instructions Recorded Confirmed Type calcium carbonate 600 mg-vitamin 1 tab PO BID #180 tabs 01/24/19 01/19/24 Rx D3 10 mcg (400 unit) tablet cetirizine 10 mg tablet 10 mg PO DAILY PRN allergy 02/28/20 01/19/24 Rx symptoms #90 tabs aspirin 81 mg tablet,delayed 81 mg PO QAM 04/07/23 01/19/24 History release (Adult Low Dose Aspirin) cholecalciferol (vitamin D3) 25 1,000 units PO QAM 04/07/23 01/19/24 History mcg (1,000 unit) tablet multivitamin 1 tab PO QAM 04/07/23 01/19/24 History rosuvastatin 20 mg tablet 20 mg PO QAM #90 tabs 04/12/23 01/19/24 Rx ferrous sulfate 325 mg (65 mg 325 mg PO Q OTHER DAY 04/30/23 01/19/24 History iron) tablet (Feosol) magnesium oxide 400 mg (241.3 mg 400 mg PO UD 06/01/23 01/19/24 History magnesium) tablet chlorpheniramine maleate 4 mg 4 mg PO HS 30 days #30 tabs 07/02/23 01/19/24 Rx tablet (Allergy Relief (chlorpheniramine)) fluticasone propionate 50 1 spray intranasal BID #18.2 mL 07/02/23 01/19/24 Rx mcg/actuation nasal spray,suspension (Flonase Allergy Relief) potassium chloride 20 mEq 20 meq PO DAILY #90 tabs 07/30/23 01/19/24 Rx tablet,extended release isosorbide mononitrate 30 mg 30 mg PO DAILY #90 tabs 09/09/23 01/19/24 Rx tablet,extended release 24 hr amlodipine 10 mg tablet 10 mg PO QAM #90 tabs 10/06/23 01/19/24 Rx apixaban 5 mg tablet 5 mg PO BID #60 tabs 12/28/23 01/19/24 Rx pantoprazole 40 mg tablet,delayed 40 mg PO BID #180 tabs 12/31/23 01/19/24 Rx release allopurinol 100 mg tablet 100 mg PO QAM #90 tabs 01/10/24 01/19/24 Rx furosemide 40 mg tablet 40 mg PO BID #60 tabs 01/12/24 01/19/24 Rx albuterol sulfate 0.63 mg/3 mL 2.5 mg inhalation .Q4-6H PRN Other 01/19/24 01/19/24 History solution for nebulization amiodarone 200 mg tablet 200 mg PO DAILY 01/19/24 01/19/24 History metoprolol tartrate 50 mg tablet 50 mg PO BID 01/19/24 01/19/24 History scopolamine base 1 mg over 3 days 1 patch transdermal UD PRN nausea 01/19/24 01/19/24 History transdermal patch (Transderm-Scop) and vomiting tramadol 37.5 mg-acetaminophen 325 1 tab PO UD PRN pain 01/19/24 01/19/24 History mg tablet Problem List (Updated 01/20/24 @ 15:45 by Tadeo Echols MD) Sinus bradycardia Anemia of chronic disease (HFpEF) heart failure with preserved ejection fraction Substernal chest pain Acute kidney injury superimposed on chronic kidney disease 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 Moderate right and mild left external carotid artery stenosis. Left lumbar radiculopathy Anemia CKD (chronic kidney disease), stage III H/O oophorectomy S/P inguinal hernia repair S/P tubal ligation S/P hysterectomy S/P carpal tunnel release RIGHT S/P colonoscopy 04/09/2016 Vitamin D deficiency (Chronic) Postmenopausal osteoporosis (Chronic) Obesity (Chronic) Hyperlipidemia (Chronic) Gout (Chronic) Generalized osteoarthritis of multiple sites (Chronic) Esophageal reflux (Chronic) Benign essential hypertension (Chronic) Patient History Medical History Atrial fibrillation currently on eliquis; will be seeing [place] the first time [place] [facility] [place]a and vomiting after administration of anesthetic agent History of asthma no inh. Lung nodules found on scan History of COVID-2020, tested at clinic, not hosp; nausea, headache, loss of taste and hearing>still has some loss of taste, no other symptoms Surgical History Hx of tonsillectomy H/O excision of mass (04/27/22) FINAL DIAGNOSIS In office procedure Dr. Melvin Skin, left ankle, punch biopsy: - Changes suggestive of stasis dermatitis - Negative for malignancy H/O rotator cuff surgery left History of cataract surgery BILATERAL Family History Father Hypertension Mother Diabetes Hypertension Uterine cancer Son Lung cancer Brother Coronary heart disease Hypertension Myocardial infarction Sister Diabetes Breast cancer Aunt Breast cancer Other Stroke Denies family history of Ovarian cancer Prostate cancer Colorectal cancer Social History Smoking Status: Never smoker Second Hand Exposure: No; Do You Dip or Chew Tobacco: No; Hx Alcohol Use: No Hx Substance Use: No Preferred Language: Belarusian Communication Ability: Effective Visual Impairment: Limited Hearing Ability: Normal Neuropsychiatric Aide Required: No Beliefs That Will Affect Care: None marital status: / Current Living Situation: Family Current Living Situation Comment: At home with son. current occupational status: retired How many Children do You have: 4 Other Information That Helps Us Care for You: No other: One Feels Safe at Home: Yes Safety Concerns: Feels Safe At This Time Childhood Exposure to Second-Hand Smoke: Yes (father/brother) Diet: regular Diet Comment: Regualar diet caffeine: Yes (coffee in am) during the past year weight has: remained stable Dental Care, Regularly: Yes Physical Activity Frequency: Does not Exercise Seatbelt Use: always Sunscreen Use: No Do you think of yourself as: straight/heterosexual Gender Identity: Female Assistive Devices: Cane Physical Exam Physical Exam: Gen.: No acute distress. Alert and oriented. HEENT: Anicteric sclera. Neck: No JVD. No hepatojugular reflux noted. Normal carotid upstrokes bilaterally. Cardiac: No ventricular heave. Regular but bradycardic in the 40s to 50s bpm. 2/6 early peaking systolic ejection murmur best heard at the right upper sternal border. Pulmonary: Clear to auscultation bilaterally without wheezes, rales, or rhonchi. Abdomen: Soft, nontender, nondistended, with normoactive bowel sounds. No bruits noted. Extremities: 2+ radial pulses bilaterally. 2+ posterior tibialis pulses bilaterally. No edema. No cyanosis. Psychiatric: Affect appears appropriate. Results & Data Vital Signs (Past 12 Hours) Vital Signs Temp Pulse Pulse Resp BP BP Pulse Ox 01/20/24 11:43 36.3 C L 45 L 18 106/41 L 95 01/20/24 07:45 36.6 C 56 L 18 133/68 95 01/20/24 05:47 49 L 01/20/24 03:10 36.7 C 55 L 16 127/52 L 95 O2 Del Method 01/20/24 11:43 Room Air 01/20/24 07:45 Room Air 01/20/24 05:47 01/20/24 03:10 Room Air Intake & Output 01/18/24 01/19/24 01/20/24 01/21/24 06:59 06:59 06:59 06:59 Intake Total 1512.083 / 1512.083 360 / 360 Output Total 600 / 600 Balance 1512.083 / 1512.083 -240 / -240 Weight 150 lb 5.684 oz Laboratory Results Laboratory Results - last 24 hr 01/20/24 05:54 WBC 6.95 RBC 3.46 L Hgb 10.7 L Hct 32.4 L MCV 93.6 MCH 30.9 MCHC 33.0 RDW Std Deviation 47.8 H RDW Coeff of Silvano 13.9 Plt Count 235 MPV 11.2 Immature Gran % (Auto) 0.3 Neut % (Auto) 57.1 Lymph % (Auto) 17.6 Monona % (Auto) 12.7 Eos % (Auto) 11.4 Baso % (Auto) 0.9 Neut # (Auto) 3.98 Lymph # (Auto) 1.22 Monona # (Auto) 0.88 H Eos # (Auto) 0.79 H Baso # (Auto) 0.06 Immature Gran # (Auto) 0.02 Sodium 140 Potassium 4.3 Chloride 100 Carbon Dioxide 33 H Anion Gap 7 BUN 58 H Creatinine 2.91 H D Est Cr Clr Drug Dosing 11.7 Est GFR ( Amer) 16.2 Est GFR (Non-Af Amer) 14.0 BUN/Creatinine Ratio 19.9 Glucose 91 Calcium 8.6 Magnesium 2.7 H Diagnostic Findings Labs reviewed and notable for abnormal but improving renal function from presentation, hypermagnesemia, normal potassium, mild anemia which is chronic and stable. High-sensitivity troponin initially elevated at 16.5 and then on repeat, 13.7 (within normal limits). Telemetry personally reviewed: Sinus bradycardia in the 40s. CT abdomen/pelvis 01/19/2024: No acute abnormalities to explain acute renal failure per radiology. Partial visualization of numerous pulmonary nodules. Left adrenal adenoma. Echo 01/19/2024: Normal LV size. EF 60-65%. Normal wall motion. Mild LVH. Mild aortic stenosis. Mild mitral stenosis. Mild MR. RVSP 32. ECG personally reviewed 01/19/2024 at 10:46 AM: Sinus bradycardia 43 bpm with first-degree AV block. RBBB. Medications Administered Current Inpatient Medications Acetaminophen (Acetaminophen 325 Mg Tab) 650 mg PO Q4H PRN PRN Reason: Pain or Fever Stop: 02/18/24 15:58 Albuterol (Albuterol 0.083% Nebu Soln 3 Ml Vial) 2.5 mg INH Q4H PRN PRN Reason: SOB/WHEEZING Stop: 02/18/24 16:14 Allopurinol (Allopurinol 100 Mg Tab) [facility] [place] 02/19/24 08:59 Last Admin: 01/20/24 08:01 Dose: 100 mg Amlodipine Besylate (Amlodipine Besylate 5 Mg Tab) 10 mg PO QAM [facility] Stop: 02/19/24 08:59 Last Admin: 01/20/24 08:01 Dose: 10 mg Apixaban (Apixaban 2.5 Mg Tab) 2.5 mg PO BID [facility] Stop: 02/18/24 20:59 Last Admin: 01/20/24 08:01 Dose: 2.5 mg Aspirin (Aspirin 81 Mg Ectab) 81 mg PO QAM [facility] Stop: 02/19/24 08:59 Last Admin: 01/20/24 08:01 Dose: 81 mg Fluticasone Propionate (Fluticasone Propionate Na Spr 16 Gm Btl) 1 sprays NA BID [facility] Stop: 02/18/24 20:59 Last Admin: 01/20/24 08:00 Dose: 1 sprays Isosorbide Mononitrate (Isosorbide [place]ona Extended Rel 30 Mg Tabcr) 30 mg PO DAILY [facility] Stop: 02/19/24 08:59 Last Admin: 01/20/24 08:01 Dose: 30 mg Ondansetron HCl (Ondansetron Inj 2 Mg/Ml 2 Ml Vial) 4 mg IV Q6H PRN PRN Reason: Nausea Stop: 02/18/24 15:58 Pantoprazole Sodium (Pantoprazole 40 Mg Tab) 40 mg PO BID [facility] Stop: 02/18/24 20:59 Last Admin: 01/20/24 08:01 Dose: 40 mg Rosuvastatin Calcium (Rosuvastatin Calcium 20 Mg Tab) 20 mg PO QAM [facility] Stop: 02/19/24 08:59 Last Admin: 01/20/24 08:01 Dose: 20 mg PG Care Time/CCT Total # of Minutes Spent Total Time Spent with Patient: Total time spent is greater than 50% in coordination of care (as documented) at patient's floor/unit and/or counseling patient: Coding Level of Care Code 77396 INT INP/OBS CARE 3/75MIN Diagnoses Substernal chest pain R07.2 (HFpEF) heart failure with preserved ejection fraction I50.30 Acute kidney injury superimposed on chronic kidney disease N17.9; N18.9 Paroxysmal atrial fibrillation I48.0 Junctional bradycardia R00.1 Sinus bradycardia R00.1
[2024-01-21 07:51] LABS: Basophils # (auto) 0.04 K/uL (0.00-0.20); Basophils % (auto) 0.6 %; Eosinophils # (auto) 0.69 K/uL (0.00-0.50); Eosinophils % (auto) 9.7 %; Hematocrit (blood only) 33.8 % (37.0-47.0); Hemoglobin 11.3 g/dl (12.0-16.0); Immature Granulocytes # (auto) 0.01 K/uL (0.01-0.20); Immature Granulocytes % (auto) 0.1 %; Lymphocytes # (auto) 1.13 K/uL (1.20-3.40); Lymphocytes % (auto) 15.9 %; Mean Corpuscular Hemoglobin 31.1 pg (25.0-34.0); Mean Corpuscular Hgb Conc 33.4 g/dL (32.0-36.0); Mean Corpuscular Volume 93.1 fL (80.0-100.0); Mean Platelet Volume 11.2 fL (9.4-12.4); Monocytes # (auto) 0.79 K/uL (0.11-0.59); Monocytes % (auto) 11.1 %; Neutrophils # (auto) 4.44 K/uL (1.40-6.50); Neutrophils % (auto) 62.6 %; Platelet Count 247 K/uL (130-400); RDW Coefficient of Variation 13.8 % (11.5-14.5); RDW Standard Deviation 47.3 fL (36.4-46.3); Red Blood Count 3.63 M/uL (4.20-5.40)
[2024-01-21 08:15] LABS: Anion Gap 7 (3-11); Blood Urea Nitrogen 55 mg/dl (6-23); Calcium 8.4 mg/dl (8.6-10.3); Carbon Dioxide 30 mmol/L (21-32); Chloride 100 mmol/L (98-107); Est GFR (African American) 18.4 ml/min; Est GFR (Non-African American) 15.9 ml/min; Glucose 97 mg/dl (70-99(Fasting)); Sodium 137 mmol/L (136-145)
[2024-01-21 11:29] VITALS: PULSE 57; RESP 20; TEMP 97.9; O2SAT 96
[2024-01-21 12:26] VITALS: BP 133/68
--- NOTE | 2024-01-21 17:37 | Discharge Summary ---
Discharge Summary Date of Service January 21, 2024 Principal Dx & Hospital Course #1 = Principal Diagnosis (1) Acute kidney injury superimposed on chronic kidney disease: Suspect this may be secondary to medications; Lasix increased from 40mg daily to BID 1 week prior to arrival - CT A/P on admission did not reveal any acute abnormalities to explain acute renal failure - On arrival: BUN 68, creatinine 3.68 (baseline 1.95), EGFR 10.5 - S/p 1 L IVF in ED --> Cr improved to 2.91 on 01/19 - Dose reduce Eliquis to 2.5 mg twice daily while hospitalized given Cr level on arrival - Avoid nephrotoxic agents where possible - Continue to hold Lasix until lab draw/PCP follow-up appointment on 01/24/2024 (2) Substernal chest pain: Dull, substernal chest pain at rest that lasted 3 hours the morning of 01/18; patient sent in by [facility]ology - Troponin 16.5-->13 on arrival. Most likely secondary to demand ischemia in setting of acute on chronic renal insufficiency. - EKG showed marked sinus bradycardia with first-degree block at 43 bpm; some morphology change when compared to 01/11/2024 re: RBBB - Echocardiogram 01/18 showed EF 6065, now mild aortic stenosis - Deferred nitro and beta-blockers at this time given marked bradycardia > ASA 243 mg given to complete 324 mg loading dose on admission - Continuous telemetry monitoring - Cardiology consulted, appreciate recommendations > Chest pain is not consistent with ischemic heart disease. > Ischemic evaluation is not necessary at this time. > Cardiology follow-up appointment scheduled for 02/01/2024. (3) (HFpEF) heart failure with preserved ejection fraction: Patient is euvolemic on arrival; no JVD or edema in the legs - 7 pound weight loss over the past week after increasing Lasix - CXR with vascular congestion; otherwise unremarkable - Most recent BNP at 433 on 01/12/2024 - Probable NYHA class II currently. - No SGLT2 inhibitor given more advanced renal insufficiency currently. - Continue low-sodium diet and daily weights. (4) Junctional bradycardia: Bradycardia dropping to 43 bpm on arrival Occurs when taking amiodarone and metoprolol Patient developed junctional bradycardia while taking amiodarone and metoprolol. She is now in sinus bradycardia after discontinuation of both amiodarone and metoprolol in April 2023. Patient is NOT to resume taking metoprolol or amiodarone. Avoid rate controlling medications. She is asymptomatic with her bradycardia. If she were to become symptomatic in the future, pacemaker may be indicated at that time. (5) Paroxysmal atrial fibrillation: Rate controlled on arrival Continue Eliquis (6) Neuroendocrine carcinoma of lung: Follows with CCP/pulmonology; no respiratory complaints at this time (7) Benign essential hypertension: Continue amlodipine and Imdur Plan DVT PPx: Eliquis CODE STATUS: Full code Notes For Next Care Provider Patient presented for substernal chest pain and CECELIA. Chest pain resolved and was found to be noncardiac. CECELIA likely due to increased Lasix dose. Hold Lasix until lab draw/PCP follow-up on 01/24/2024. Defer to PCP when to resume Lasix depending on kidney function. Medication Changes From Visit Metoprolol and amiodarone were discontinued in April 2023 by cardiology. However, these were still listed as patient's home medication. Patient is not to take metoprolol, amiodarone, or other rate controlling medications given asymptomatic sinus bradycardia. Lasix held due to CECELIA. Defer to PCP when to resume. Admission HPI Per Admitting Provider Tarah is a pleasant 88-year-old female PMH of paroxysmal A-fib (on Eliquis), CHF, stage IIIb CKD, neuroendocrine carcinoma of lung, gout, HTN, HLD, reflux, and CAD. She presented at [facility] cardiology for mid-sternal chest pain that began the morning of 01/18. Patient reports her pain is located substernally and began around 8:30 AM this morning while driving in the car to her cardiology appointment. Patient had an EKG done in the cardiology office that showed sinus bradycardia at 46 bpm; patient does not believe she took metoprolol or amiodarone this morning. She notes she has had this substernal chest pain in the past before albeit with exertion, but never at rest. She describes it as a "dull, tooth ache" pain that has been constant over the past 3 hours. Most of the time, this pain is alleviated with rest, but this time it has been ongoing/lingering. She rates the pain 3/10 at present; 5/10 at worst. Patient did not take any medications for the pain, and she reports has not been "strong enough" to merit medications. No radiation to the back, shoulders, or down the arms arms. Patient denies any prior cardiac events; no PMH of CT or CVA. Patient takes aspirin daily for primary prevention. She took her regular morning medications this morning; her only recent change in medication was that she was increased from Lasix 40 mg daily to twice daily on 01/11 for fluid retention. Prior to that she was having SOB both at rest and with exertion, but she reports no SOB at this time. She is still producing urine and going to the bathroom frequently. No history of kidney stones. No history of urinary retention. She is lost 7 pounds over the past week. Her leg swelling has subsided. She reports that she watches her salt intake, and has no recent changes in diet. No recent injuries to the chest wall. Patient ambulates with a cane as needed; no recent falls. Patient denies smoking, tobacco use, or recent alcohol use. Patient is mildly bradycardic at 53 bpm at time of admission; SpO2 92% on RA; vitals otherwise stable. ED course: NSS at 125 mL/hr ROS: Patient endorses substernal chest pain at rest, weight loss over the past week, intermittent night-sweats, BYRNE, and blurry vision yesterday (which resolved). Patient denies fever, chills, dizziness, lightheadedness, loss of vision, changes in taste/hearing/smell, SOB at rest or with exertion, cough, pleuritic CP, chest palpitations, abdominal pain, N/V/D, changes in urinary/bowel habits, urinary retention, blood in urine or stool, or numbness/tingling/swelling in the arms or legs. Admission Exam Per Admitting Provider General: no acute distress; pleasant affect; non-toxic appearing; well- nourished; cooperative; SpO2 92% on RA HEENT: normocephalic, atraumatic; no scleral icterus; PERRLA; vision and hearing intact Neck: supple; negative JVP; no lymphadenopathy; trachea midline Skin: warm, dry without signs of tenting; no cyanosis; no rashes, bruising, lesions, or erythema noted CV: chest wall NTP; chest pain is nonreproducible upon substernal palpation; RR, bradycardic around 50 bpm; S1/S2 normal; 4/6 systolic ejection murmur auscultated at the second ICS MCL; bounding pulses intact and symmetric at radial, DP, and PT Lungs: no acute respiratory distress; symmetrical chest wall expansion; clear breath sounds across all lung schwartz w/o adventitious sounds; no wheezing ABD: Soft, NTP; BS present; no rebound/guarding; no distention MSK: no tics or fasciculations; no edema noted in the LEs b/l, nonerythematous Neuro: A&Ox3; normal mood and affect; fluent speech; no focal deficits; sensation grossly intact in the LEs b/l Discharge Exam General: No acute distress, nondiaphoretic, well-developed, well-nourished. Skin: The skin was without rashes, erythema, edema, or bruising. Cardiac: Regular rhythm, bradycardic rate in the 40-50s. 4/6 systolic murmur present. Chest wall nontender. Pulm: Clear to auscultation bilaterally without wheezes, rales or rhonchi. No respiratory distress. 95% on room air. Abdominal: Soft, nontender, nondistended. Bowel sounds present. Neuro: A&O x3. No focal neurological deficits. Updated Medication List Medication Instructions Recorded Confirmed Type calcium carbonate 600 mg-vitamin 1 tab PO BID #180 tabs 01/24/19 01/19/24 Rx D3 10 mcg (400 unit) tablet cetirizine 10 mg tablet 10 mg PO DAILY PRN allergy 02/28/20 01/19/24 Rx symptoms #90 tabs aspirin 81 mg tablet,delayed 81 mg PO QAM 04/07/23 01/19/24 History release (Adult Low Dose Aspirin) cholecalciferol (vitamin D3) 25 1,000 units PO QAM 04/07/23 01/19/24 History mcg (1,000 unit) tablet multivitamin 1 tab PO QAM 04/07/23 01/19/24 History rosuvastatin 20 mg tablet 20 mg PO QAM #90 tabs 04/12/23 01/19/24 Rx ferrous sulfate 325 mg (65 mg 325 mg PO Q OTHER DAY 04/30/23 01/19/24 History iron) tablet (Feosol) magnesium oxide 400 mg (241.3 mg 400 mg PO UD 06/01/23 01/19/24 History magnesium) tablet chlorpheniramine maleate 4 mg 4 mg PO HS 30 days #30 tabs 07/02/23 01/19/24 Rx tablet (Allergy Relief (chlorpheniramine)) fluticasone propionate 50 1 spray intranasal BID #18.2 mL 07/02/23 01/19/24 Rx mcg/actuation nasal spray,suspension (Flonase Allergy Relief) potassium chloride 20 mEq 20 meq PO DAILY #90 tabs 07/30/23 01/19/24 Rx tablet,extended release isosorbide mononitrate 30 mg 30 mg PO DAILY #90 tabs 09/09/23 01/19/24 Rx tablet,extended release 24 hr amlodipine 10 mg tablet 10 mg PO QAM #90 tabs 10/06/23 01/19/24 Rx apixaban 5 mg tablet 5 mg PO BID #60 tabs 12/28/23 01/19/24 Rx pantoprazole 40 mg tablet,delayed 40 mg PO BID #180 tabs 12/31/23 01/19/24 Rx release allopurinol 100 mg tablet 100 mg PO QAM #90 tabs 01/10/24 01/19/24 Rx furosemide 40 mg tablet 40 mg PO BID #60 tabs 01/12/24 01/19/24 Rx albuterol sulfate 0.63 mg/3 mL 2.5 mg inhalation .Q4-6H PRN Other 01/19/24 01/19/24 History solution for nebulization scopolamine base 1 mg over 3 days 1 patch transdermal UD PRN nausea 01/19/24 01/19/24 History transdermal patch (Transderm-Scop) and vomiting tramadol 37.5 mg-acetaminophen 325 1 tab PO UD PRN pain 01/19/24 01/19/24 History mg tablet Hospital Stay Data Consultations 01/19/24 12:21 ED Decision to Admit Stat 01/20/24 09:28 Consult Cardiology Routine Diagnostic Imagining Performed Laboratory Results WBC 7.10 K/ul (4.8-10.8) 01/21/24 07:31 RBC 3.63 M/uL (4.20-5.40) L 01/21/24 07:31 Hgb 11.3 g/dl (12.0-16.0) L 01/21/24 07:31 Hct 33.8 % (37.0-47.0) L 01/21/24 07: MCV 93.1 fL (80.0-100.0) 01/21/24 07: MCH 31.1 pg (25.0-34.0) 01/21/24 07: MCHC 33.4 g/dL (32.0-36.0) 01/21/24 07: RDW Std Deviation 47.3 fL (36.4-46.3) H 01/21/24 07: RDW Coeff of Silvano 13.8 % (11.5-14.5) 01/21/24 07: Plt Count 247 K/uL (130-400) 01/21/24 07: MPV 11.2 fL (9.4-12.4) 01/21/24 07: Immature Gran % (Auto) 0.1 % 01/21/24 07: Neut % (Auto) 62.6 % 01/21/24 07: Lymph % (Auto) 15.9 % 01/21/24 07: [place] % (Auto) 11.1 % 01/21/24 07:31 Eos % (Auto) 9.7 % 01/21/24 07:31 Baso % (Auto) 0.6 % 01/21/24 07: Neut # (Auto) 4.44 K/uL (1.40-6.50) 01/21/24 07: Lymph # (Auto) 1.13 K/uL (1.20-3.40) L 01/21/24 07:31 [place] # (Auto) 0.79 K/uL (0.11-0.59) H 01/21/24 07: Eos # (Auto) 0.69 K/uL (0.00-0.50) H 01/21/24 07:31 Baso # (Auto) 0.04 K/uL (0.00-0.20) 01/21/24 07: Immature Gran # (Auto) 0.01 K/uL (0.01-0.20) 01/21/24 07: PT 12.9 Seconds (9.0-12.0) H 01/19/24 10:58 INR 1.2 (0.9-1.1) H 01/19/24 10:58 APTT 32 Seconds (21-31) H 01/19/24 10:58 PTT Ratio 1.2 01/19/24 10:58 Sodium 137 mmol/L (136-145) 01/21/24 07:31 Potassium 4.1 mmol/L (3.5-5.1) 01/21/24 08:27 Chloride 100 mmol/L (98-107) 01/21/24 07:31 Carbon Dioxide 30 mmol/L (21-32) 01/21/24 07:31 Anion Gap 7 (3-11) 01/21/24 07:31 BUN 55 mg/dl (6-23) H 01/21/24 07:31 Creatinine 2.62 mg/dl (0.6-1.2) H 01/21/24 07:31 Est Cr Clr Drug Dosing 13.0 ml/min 01/21/24 07:31 Est GFR ( Amer) 18.4 ml/min 01/21/24 07:31 Est GFR (Non-Af Amer) 15.9 ml/min 01/21/24 07:31 BUN/Creatinine Ratio 21.0 (10-20) H 01/21/24 07:31 Glucose 97 mg/dl (70-99(Fasting)) 01/21/24 07:31 Calcium 8.4 mg/dl (8.6-10.3) L 01/21/24 07:31 Magnesium 2.7 mg/dl (1.7-2.4) H 01/20/24 05:54 Total Bilirubin 0.4 mg/dl (0.2-1.0) 01/19/24 10:58 AST 24 U/L (13-39) 01/19/24 10:58 ALT 18 U/L (7-52) 01/19/24 10:58 Alkaline Phosphatase 58 U/L (34-104) 01/19/24 10:58 Troponin I High Sens 13.7 pg/ml (0-14) 01/19/24 13:51 Total Protein 7.5 gm/dl (6.0-8.3) 01/19/24 10:58 Albumin 4.2 gm/dl (3.4-5.0) 01/19/24 10:58 Globulin 3.3 gm/dl (2.5-4.0) 01/19/24 10:58 Albumin/Globulin Ratio 1.3 (0.9-2) 01/19/24 10:58 Lipase 38 U/L (11-82) 01/19/24 10:58 Impressions Chest X-Ray 01/19/24 10:49 XR chest 1V portable HISTORY: 88 years-old Female Chest pain, nonspecific COMPARISON: Chest radiograph 01/12/2024, chest CT 10/20/2023. TECHNIQUE: AP view of the chest FINDINGS: Cardiomediastinal and hilar silhouettes are unchanged. Pulmonary vascular congestion. No pleural effusion. Mild bibasilar opacities. Pulmonary nodules redemonstrated. Ill-defined bilateral airspace opacities redemonstrated. Bones appear grossly intact. IMPRESSION: 1. Cardiomegaly with vascular congestion. 2. Mild bibasilar densities, likely atelectatic. 3. Pulmonary nodules better seen on the prior chest CT. ACT 112: Negative or not required by law. The above report was generated using voice recognition software. It may contain grammatical, syntax or spelling errors. Electronically signed by: Tyson Naranjo M.D. 01/19/2024 11:35 AM Abdomen/Pelvis CT 01/19/24 11:39 CT abd pelvis wo con CLINICAL HISTORY: ARF, lung CA TECHNIQUE: Helical axial images of the abdomen and pelvis were obtained. Automated dose lowering techniques and/or adjustment according to patient size were utilized for this exam. This exam was performed without intravenous contrast. CT DOSE: 1209.51 mGy.cm COMPARISON: Comparison is made to head CT 07/21/2023 FINDINGS: Lower chest: Numerous pulmonary nodules are seen. Previously noted pleural effusions have resolved. Liver: Unremarkable. No focal lesions are seen. Gallbladder and biliary tree: Cholelithiasis is seen without evidence of cholecystitis. No intra- or extrahepatic biliary ductal dilation. Pancreas: Unremarkable, no focal lesions. Spleen: Unremarkable. Adrenals: A millimeter left adrenal nodule is seen, likely representing a lipid rich adenoma. Kidneys and ureters: Renal cysts are seen. Bladder: Unremarkable. Reproductive organs: Patient is status post hysterectomy. Bowel: Diverticulosis is seen without evidence of diverticulitis. Lymph nodes Retroperitoneal: Unremarkable. Pelvic: Unremarkable. Mesenteric: Unremarkable. Peritoneum: Normal. Vessels: Atherosclerotic calcifications are seen. Abdominal wall: A fat-containing umbilical hernia is seen. Infrarenal fat- containing hernia is seen. Bones: Degenerative changes in the visualized spine. IMPRESSION: 1. No acute abnormalities to explain acute renal failure. 2. Partial visualization of numerous pulmonary nodules in this patient with history of lung cancer. 3. Left adrenal adenoma. 4. Cholelithiasis without cholecystitis. 5. Diverticulosis without diverticulitis. ACT 112: Negative or not required by law. Electronically signed by: Matthew Rowland M.D. 01/19/2024 1:29 PM Pending Results Patient Have Any Pending Studies at Discharge: No Discharge Instructions Given to Patient (Per Discharging Provider) Chirag Echols were admitted to the hospital because of chest pain. You had an extensive workup including labs, EKG, an echocardiogram, and were evaluated by our production hand. All of this to be said that the chest pain you experienced was noncardiac pain. You are also found to have an acute kidney injury, likely due to the increased Lasix dose. We have held your Lasix while you are in the hospital, and your kidney function is improving though not back to baseline yet. Upon discharge from the hospital: * Do not take your Lasix until you get lab work done to monitor your kidney function. > You can get lab work done on 01/24/2024. A lab slip has been ordered and printed with your discharge paperwork. * Follow-up with your PCP. Your appointment is scheduled for 01/24/24, at 7:00 AM. > You can get your labs drawn after this appointment and then your PCP will review the results of your lab work and give you recommendations on when to resume taking your Lasix. > I do recommend only resuming your Lasix 40 mg at once daily dosing when you do resume. * Do NOT take metoprolol or amiodarone moving forward. These can both reduce your heart rate, which is already low at your baseline. * Continue to follow a low-sodium diet. * Follow-up with cardiology. You have an appointment scheduled on 02/01/2024 at 9:45 AM. Please return to the hospital if you experience any of the following: Chest p ain, chest pressure, heart palpitations, shortness of breath, difficulty breathing, lightheadedness, dizziness, confusion, or passing out. It was a pleasure taking care of you while you were in the hospital, Shawnee Sawant PA-C Total Time Total Time Spent Total Time Spent (In Minutes): Greater than 30 minutes spent completing this discharge process including direct patient care, medication reconciliation, documentation, review of labs and images, and coordination of care. Coding Level of Care Code 79487 INP/OBS DISCH >30 MIN Diagnoses Acute kidney injury superimposed on chronic kidney disease N17.9; N18.9 Substernal chest pain R07.2 (HFpEF) heart failure with preserved ejection fraction I50.30 Junctional bradycardia R00.1 Paroxysmal atrial fibrillation I48.0 Neuroendocrine carcinoma of lung C7A.8 Benign essential hypertension I10
== END 2024-01-21 13:06 | disposition home or self-care (01) | DRG 683 ==
LOC: ED 10:29 → 2W 12:48 → SUATTDRO 12:48 → 2W 15:26
DX: K21.9 Gastro-esophageal reflux disease without esophagitis; E78.5 Hyperlipidemia, unspecified; Z79.82 Long term (current) use of aspirin; Z79.01 Long term (current) use of anticoagulants; I50.32 Chronic diastolic (congestive) heart failure; N18.32 Chronic kidney disease, stage 3b; I48.0 Paroxysmal atrial fibrillation; I24.89 Other forms of acute ischemic heart disease; Z79.899 Other long term (current) drug therapy; Z86.16 Personal history of COVID-19; I25.10 Atherosclerotic heart disease of native coronary artery without angina pectoris; D63.1 Anemia in chronic kidney disease; C7A.8 Other malignant neuroendocrine tumors; Z82.49 Family history of ischemic heart disease and other diseases of the circulatory system; N17.9 Acute kidney failure, unspecified; R00.1 Bradycardia, unspecified; I13.0 Hypertensive heart and chronic kidney disease with heart failure and stage 1 through stage 4 chronic kidney disease, or unspecified chronic kidney disease; M10.9 Gout, unspecified